=== PATIENT | female | born 2000 | race Caucasian/White ===

== ENCOUNTER 2020-04-05 20:30 | Outpatient (CLI) | payer OTHER, MEDICAID, SELFPAY ==
[2020-04-05] VITALS (18 sets, daily range): BP systolic 0–136; BP diastolic 0–86; PULSE 69–110; RESP 17; TEMP 36.6; BMI 29.2
[2020-04-05 21:19] LABS: Nitrazine Paper, PH Negative
[2020-04-05] MEDS: lactated ringers 1,000 ML 999 ML IV (21:35)
[2020-04-05 21:47] LABS: Basophils # 0.1 10^3/uL (0.0-0.1); Basophils % 0.3 %; Eosinophils # 0.3 10^3/uL (0.0-0.8); Eosinophils % 2.2 %; Hematocrit 33.8 % (37.0-47.0); Hemoglobin 11.3 g/dL (11.5-15.3); Lymphocytes # 2.8 10^3/uL (1.5-6.5); Lymphocytes % 18.6 %; Mean Corpuscular HGB Conc 33.4 g/dL (30.0-36.0); Mean Corpuscular Hemoglobin 28.5 pg (28.0-34.0); Mean Corpuscular Volume 85.1 fL (81-99); Mean Platelet Volume 10.3 fL (7.4-10.4); Monocytes # 1.1 10^3/uL (0.2-0.9); Monocytes % 7.5 %; Neutrophils # 10.48 10^3/uL (1.8-8.0); Neutrophils % 70.5 %; Nucleated Red Blood Cells % 0 %; Platelet Count 420 10^3/cmm (130-400); Red Blood Count 3.97 10^6/uL (4.1-5.3); Red Cell Distribution Width 12.3 % (12.1-15.1); White Blood Count 14.9 10^3/uL (4.5-13.0)
--- NOTE | 2020-04-05 22:05 | PM.OBGYHP ---
Providers/Chief Complaint Primary Care Provider: Adelfo Cortez MD Chief Complaint: Contractions, possible ROM HPI INTERNAL CARVER History of Present Illness Bethanie Ann is a 19 year old female who is a 1 para 0 at 37 weeks and 2 days gestation. She has been followed by Dr. Cortez throughout her course with no problems or concerns until ultrasound done and around 20 weeks gestation. 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 She was then referred to perinatologist in [place] and then on the [place]. She been followed by Dr. Destiney Mata at [facility]. The patient relates that the planned delivery was 18 April in [place]. However, she felt that she might be having contractions this evening and was worried she was leaking fluid. Upon arrival to [facility] Delivery she was found to be having contractions occasionally and she was nitrazine negative with baby ballotable. However, she was approximately 5 cm dilated and the cervix was very thin. At that time this physician was called and I arrived and talk with the patient and have made a call to [place] and discussed with the high risk bandage wrapping machine operator on-call. We have placed the patient on magnesium. She denies any other health problems. She denies nausea, vomiting, fever or chills. She has no known exposure to COVID-19. Present Details : 1 Para: 0 Labs Rubella: Equivocal RPR: Negative GBS: Negative Review of Systems General: Reports: 10 or more systems reviewed and unremarkable except in HPI and below Const: Denies: fever(s), chills or change in appetite ENMT: Denies: throat pain or oral sores Card: Denies: chest pain, palpitations, irregular heart rhythm, edema or swelling of feet/ankles Resp: Denies: dyspnea, productive cough or wheezing GI: Reports: abdominal pain (Occasional contractions with mild pain.); Denies: nausea, vomiting, diarrhea or constipation : Reports: other (Contractions as described above.); Denies: flank pain Musc: Denies: neck pain, back pain or joint pain Neuro: Denies: headache(s) or frequent falls Psych: Denies: anxiety or depression Magnus/Lymph: Denies: easy bruising Medications/Allergies Home Medications Medication Instructions Recorded Confirmed Last Taken Type PNV cmb#95-ferrous fumarate-FA tab PO 04/05/20 04/03/20 History [] Allergies Allergy/AdvReac Type Severity Reaction Status Date / Time No Known Allergies Allergy Verified 04/05/20 20:52 Vitals/I&O/Wt Last Vital Signs Temp 97.9 F 04/05/20 20:38 Pulse 85 04/05/20 21:48 Resp 17 04/05/20 20:38 BP 127/81 04/05/20 21:48 Weight last 48 hrs Weight 77.111 kg Weight 77.111 kg Physical Exam Const: COMMON NORMALS: no acute distress and healthy appearing (Obviously .) HENMT: MOUTH: Normal oral and palatal mucosa present Resp: COMMON NORMALS: normal respiratory effort, No retractions, No use of accessory muscles and clear to auscultation bilaterally Cardio: COMMON NORMALS: regular rate, regular rhythm, No murmurs present (Cardio) and No rub (Cardio) GI: COMMON NORMALS: Soft to palpation and non-tender; negative for Normal to inspection, nondistended, normoactive bowel sounds present (Patient has a gravid uterus and abdomen is distended.) : COMMON NORMALS: Yes no CVA tenderness MANUAL OB EXAM: dilated 5 cm, effaced 75% and station (This is by nurse exam.) -2 Extremity: COMMON NORMALS: normal to inspection and no pedal edema Neuro: COMMON NORMALS: patient oriented x3, CN's II-XII intact bilaterally, moves all extremities, no focal motor deficits and no sensory deficits noted Psych: COMMON NORMALS: mental status grossly normal APPEARANCE: Yes grossly normal ATTITUDE: Yes calm Skin: COMMON NORMALS: no rashes or lesions noted Data : 04/05/20 21:10 A&P Assessment and plan (1) 37 weeks gestation of : Patient appears to be in early labor at 37-2/7 weeks gestation. She has a high risk secondary to hypoplastic left heart and her fetus. Status: Acute (2) High risk due to history of previous obstetrical problem in third trimester: Patient is carrying an infant with hypoplastic left heart and is presently in labor. I have discussed this case with Dr. Khan at [facility]. The plan at present is to place the patient on magnesium to try to slow her contractions and they are sending a transport helicopter to excelsior picker the patient to fly her to [place] for delivery of the infant. If, upon arrival the patient is felt to be too far along and needs to be delivered here the pediatric transport team will then be sent from [place]. Status: Acute Attestations Medical Necessity Statement*: This patient is in active labor with a high risk . The plan is to attempt to delay delivery until transport to [place]. However, she may require another midnight hospital stay if she needs to be delivered here. Time Spent in Patient Care: Greater than 35 minutes (>than 50% of time spent in counselling and/or direct pt care on unit). Coding Level of Care Code Acute Refurbish Technician for [facility] Fwd Exam Comprehensive Diagnoses 37 weeks gestation of Z3A.37 High risk due to history of previous obstetrical problem in third trimester O09.293
[2020-04-05] MEDS: magnesium sulfate premix 4 GM/100 ML PREMIX 300 GM (22:06)
[2020-04-05] MEDS: magnesium sulfate premix 20 GM/500 ML BAG IV (22:26)
[2020-04-05] MEDS: dextrose 5%-lactated ringers 1,000 ML 125 ML IV (22:37)
[2020-04-05 23:03] LABS: Alanine Aminotransferase 29 U/L (0-33); Albumin Level 3.2 g/dL (3.5-5.2); Alkaline Phosphatase 207 IU/L (35-105); Anion Gap 15.6 (5-19); Aspartate Amino Transferase 25 U/L (0-32); Blood Urea Nitrogen 4 mg/dL (6-20); Calcium 8.6 mg/dL (8.5-10.5); Carbon Dioxide 18 mmol/L (22-29); Chloride 103 mmol/L (98-107); Globulin 3.2 g/dL (1.3-4.6); Glomerular Filtration Rate 203.5 mL/min (90-130); Glucose 88 mg/dL (65-115); Osmolality Calculated 272 mOsm/kg (285-295); Potassium 3.6 mmol/L (3.5-5.1); Sodium 133 mmol/L (136-145); Total Bilirubin 0.2 mg/dL (0.15-1.2); Total Protein 6.4 g/dL (6.6-8.7)
[2020-04-05 23:04] LABS: Magnesium 4.5 mg/dL (1.7-2.3)
[2020-04-06] MEDS: metoclopramide 5 mg/mL SDV 2 mL 10 MG IV (00:03)
[2020-04-06 00:05] VITALS: RESP 20; TEMP 36.8
[2020-04-06 00:15] VITALS: BP 123/71; PULSE 75; RESP 22; TEMP 36.8; O2SAT 99
--- NOTE | 2020-04-06 00:26 | PM.OBGYDC ---
Discharge Providers HAIR WEAVER Date of Discharge: 04/06/20 Attending Provider at Discharge: Pedro Rollins MD Primary Care Provider: Adelfo Cortez MD Diagnoses at Discharge Discharge Diagnosis (1) 37 weeks gestation of : Status: Acute Problem details: Patient cervical exam is unchanged from admission at 5 cm dilated. Her contractions had spaced out to every 6 to 12 minutes and [facility] was here to medicinal plant picker the patient. (2) High risk due to history of previous obstetrical problem in third trimester: Status: Acute Problem details: Patient stable for transfer via air ambulance to [facility] in [facility]. She was stable on discharge. Reason for Visit Reason for Visit: Contractions, possible ROM Hospital Course Hospital Course: Patient was admitted to the hospital with contractions and possible rupture membranes. She was found to have no rupture membranes but was 5 cm dilated. She was started on magnesium and [facility] was called as she has a high risk secondary to hypoplastic left heart and her baby that she is carrying. As she has not made any cervical change she was felt to be stable for discharge via air ambulance with the team from [place]. Physical Exam Const: COMMON NORMALS: no acute distress, average body habitus and alert Neck/C-Spine: COMMON NORMALS: no JVD Resp: COMMON NORMALS: normal respiratory effort, No retractions, No use of accessory muscles and clear to auscultation bilaterally AUSCULTATION: clear to auscultation bilaterally Cardio: COMMON NORMALS: no JVD, regular rate, regular rhythm, S1 normal heart sound present, S2 normal heart sound present and No murmurs present (Cardio) RATE: regular rate RHYTHM: regular rhythm HEART SOUNDS: S1 normal heart sound present and S2 normal heart sound present GI: COMMON NORMALS: Soft to palpation, non-tender and no masses (She has an obvious intrauterine .) PALPATION: Yes Soft to palpation Neuro: COMMON NORMALS: CN's II-XII intact bilaterally, moves all extremities and no focal motor deficits SENSORIUM/ORIENTATION: Yes alert Psych: COMMON NORMALS: mental status grossly normal and normal affect Urinary Catheter Management^: Blount Latex Free: Cath Placed During This Visit: yes Reason for Continuing Indwelling Catheter: Accurate Measurement of Urinary Output in Critically Ill Patients Urinary Catheter Date of Insertion: 04/05/20 Urinary Catheter Time of Insertion: 22:05 Discharge Data Data Completed and Pending: Labs from last 24 hours 04/05/20 04/05/20 04/05/20 22:40 22:40 21:10 WBC 14.9 H RBC 3.97 L Hgb 11.3 L Hct 33.8 L MCV 85.1 MCH 28.5 MCHC 33.4 RDW 12.3 Plt Count 420 H MPV 10.3 Neut % (Auto) 70.5 Lymph % (Auto) 18.6 Buchanan % (Auto) 7.5 Eos % (Auto) 2.2 Baso % (Auto) 0.3 Neut # (Auto) 10.48 H Lymph # (Auto) 2.8 Buchanan # (Auto) 1.1 H Eos # (Auto) 0.3 Baso # (Auto) 0.1 Nucleated RBC % (a uto) 0 Nucleated RBCs # 0.0 Sodium 133 L Potassium 3.6 Chloride 103 Carbon Dioxide 18 L Anion Gap 15.6 BUN 4 L Creatinine 0.4 L GFR Calculation 203.5 H Glucose 88 Calculated Osmolal ity 272 L Calcium 8.6 Magnesium 4.5 H Total Bilirubin 0.2 AST 25 ALT 29 Alkaline Phosphata se 207 H Total Protein 6.4 L Albumin 3.2 L Globulin 3.2 Vitals: Last Vital Signs Temp 98.2 F 04/06/20 00:15 Pulse 75 04/06/20 00:15 Resp 22 H 04/06/20 00:15 BP 123/71 04/06/20 00:15 Pulse Ox 99 04/06/20 00:15 Discharge Plan Discharge Patient Disposition: Home Prescriptions: No Action 28 mg iron- 800 mcg Tablet PO RF: 0 Discharge Orders: Discharge Order (Routine); Ordered 04/06/20 Ordered By: Pedro Rollins Diet: As Directed Discharge Date/Time: 04/06/20 00:25 Discharge Attestations HAIR WEAVER Time Spent in Discharge Care*: less than 30 min Specific Discharge Activities: Specific discharge activities: educating patient, educating and/or supporting family/caregiver, documenting/other paperwork and evaluating patient/reviewing data Coding Level of Care Code Acute Handtools Repairer for [facility] Fwd Diagnoses 37 weeks gestation of Z3A.37 High risk due to history of previous obstetrical problem in third trimester O09.293
--- NOTE | 2020-04-06 00:29 | PC.NURSE ---
TRANSPORT TEAM ARRIVED AND ASSUMED CARE OF PT AT 0000.
--- NOTE | 2020-04-06 00:30 | PC.NURSE ---
[facility] 0022.
[2020-04-06 00:31] VITALS: BP 123/71; PULSE 75; RESP 22; TEMP 36.8; O2SAT 99
== END 2020-04-06 00:25 | disposition home or self-care (01) ==
LOC: OPOB 20:33 → OBGYN 20:33
PROVIDERS: Family Provider Family Medicine; PCP Family Medicine; Visit Provider Family Medicine
DX: O26.899 Other specified pregnancy related conditions, unspecified trimester (principal); Z3A.00 Weeks of gestation of pregnancy not specified; R10.9 Unspecified abdominal pain
CPT/HCPCS: 12345; 36415; 51702; 59025; 76815; 80053; 83735; 83986; 85025; 99211; J2765; J3475

== ENCOUNTER → 2021-02-06 11:58 | Outpatient (BNVA) | payer OTHER, MEDICAID, SELFPAY | PROVIDERS: Family Provider Family Medicine; PCP Family Medicine; Visit Provider Emergency Medicine | DX: Z20.822 Contact with and (suspected) exposure to COVID-19 (principal) | CPT/HCPCS: 87635 ==